=== PATIENT | female | born 1990 | race Two or more races ===

== ENCOUNTER 2024-05-17 12:50 | Emergency (ER) | payer MEDICAID, SELFPAY ==
[2024-05-17 12:52] VITALS: BMI 31.2
[2024-05-17 12:57] VITALS: BP 108/68; PULSE 67; RESP 17; TEMP 36.9; O2SAT 98
--- NOTE | 2024-05-17 13:12 | XR_ITS ---
Examination: Complete OB ultrasound greater than 14 weeks Date and time of exam: May 17, 2024 at 1343 hours INDICATIONS: Onset pelvic pain today Findings: Viable intrauterine single fetus with single amniotic sac presentation breech Cardiac motion 141 BPM Placenta fundal grade 1 Umbilical cord insertion 3 vessel seen Amniotic fluid adequate spine maternal left Cervix 3.3 cm Ovary on the right obscured by bowel gas Left ovary 4.5 x 2.6 x 3.3 cm arterial flow Composite estimated gestational age based on BPD, head circumference, abdominal circumference, femur length is 16 weeks 0 days Estimated weight 139 g. Survey of intracranial anatomy, spinal anatomy, abdominal anatomy, four-chamber heart performed with no abnormalities identified. Impression: Viable intrauterine gestation breech presentation Estimated gestational age 16 weeks 0 days.
--- NOTE | 2024-05-17 13:12 | PD.EDRME ---
Rapid Medical Screening Exam RME Arrival date/time: 05/17/24 12:50 This is a 33-year-old female who presents to the emergency department with complaints of lower pelvic abdominal pain she is currently 17 weeks of gestation I have greeted and performed a focused initial assessment of this patient. Initial appropriate labs ordered at this time. A comprehensive ED assessment and evaluation of the patient and analysis of all test and completion of medical decision making process will be conducted by additional ED provider. Chief Complaint: Abdominal Pain Time Seen by Provider: 05/17/24 12:53 Vital signs: Vital Signs Temperature 98.5 F 05/17/24 12:57 Pulse Rate 67 05/17/24 12:57 Respiratory Rate 17 05/17/24 12:57 Blood Pressure 108/68 05/17/24 12:57 Pulse Oximetry (%) 98 05/17/24 12:57 Oxygen Delivery Method Room Air 05/17/24 12:57
[2024-05-17 13:49] LABS: Collection Type, Urine Clean Catch
[2024-05-17 13:49] LABS: Basophils % (Auto) 0 % (0-2.5); Eosinophils % (Auto) 0 % (0-10); Hematocrit 35.2 % (36.0-46.0); Hemoglobin 12.8 g/dL (12.0-16.0); Immature Granulocytes % (Auto) 0 % (0-0); Immature Granulocytes Auto 0.04 Thou/mm3 (0.00-0.00); Lymphocytes # (Auto) 1.8 Thou/mm3 (1.0-4.8); Lymphocytes % (Auto) 13 % (10-50); Mean Corpuscular HGB Conc 36.4 g/dl (31.0-37.0); Mean Corpuscular Hemoglobin 32.2 pg (25.0-35.0); Mean Corpuscular Volume 88 fL (80-100); Monocytes # (Auto) 0.6 Thou/mm3 (0.0-0.8); Monocytes % (Auto) 4 % (0-12); Neutrophils # (Auto) 11.8 Thou/mm3 (1.8-7.7); Neutrophils % (Auto) 83 % (37-80); Nucleated Red Blood Cell % 0 /100 WBC (0); Platelet Count 278 Thou/mm3 (140-440); RDW Standard Deviation 38.6 fL (36.4-46.3); Red Blood Count 3.98 Miln/mm3 (4.00-5.20); White Blood Count 14.2 Thou/mm3 (3.6-11.0)
[2024-05-17 13:55] LABS: Bacteria,Urine Rare; Bilirubin,Urine Negative (Negative); Blood,Urine 1+ (Negative); Calcium Oxalate Crystals,Urine 3+; Color,Urine Yellow (Lt Yel-Yel); Glucose, Urine Negative (Negative); Hyaline Casts,Urine < 1 /hpf (0-1); Ketones,Urine 2+ (Negative); Leukocyte Esterase,Urine Positive (Negative); Nitrite,Urine Negative (Negative); Protein,Urine 1+ (Neg - Trace); RBC,Urine 15 /hpf (0-3); Specific Gravity,Urine 1.039 (1.001-1.035); Squamous Epithelial Cell,Urine 6 /hpf (0-5); WBC,Urine 30 /hpf (0-5)
[2024-05-17 14:02] LABS: Clarity,Urine Hazy (Clear/Hazy)
[2024-05-17 14:44] LABS: Alanine Aminotransferase 15 U/L (10-49); Albumin, Serum 4.2 gm/dL (3.5-5.0); Albumin/Globulin Ratio 1.5 (1.2-2.2); Alkaline Phosphatase 55 U/L (46-116); Anion Gap 7 (7-16); Aspartate Amino Transferase 19 U/L (0-34); BUN/Creatinine Ratio 16 Ratio (12-20); Beta HCG,Quantitative 96972 mIU/mL (<5.0); Blood Urea Nitrogen 8 mg/dL (9-23); Calcium 9.6 mg/dL (8.3-10.6); Calcium (Corrected) 9.6 mg/dL (8.5-10.1); Carbon Dioxide 23.8 mMol/L (20.0-31.0); Chloride 104 mMol/L (98-107); Creatinine (Component) 0.5 mg/dL (0.6-1.3); Estimated Creatinine Clearance 154.3 mL/min (>60); Globulin 2.8 gm/dL (2.3-3.5); Glucose 85 mg/dL (74-106); Osmolality,Calculated 267 (275-295); Potassium 3.4 mMol/L (3.4-5.1); Sodium 135 mMol/L (136-145); eGFR > 60 See Note
--- NOTE | 2024-05-17 14:49 | PD.EDABDPN ---
ED Abdominal Pain RME/HPI General Chief Complaint: Abdominal Pain Stated complaint: 15 WEEKS PREG, ABDOMINAL PAIN Time seen by provider: 05/17/24 12:53 Arrival date/time: 05/17/24 12:50 This is a 15-week female who presents to the emergency department with lower pelvic suprapubic pain x 1 day. She reports she feels movement however is worried about her prompting her ED visit today. Does report mild dysuria no hematuria no vaginal discharge. No fever no flank pain. RME / HPI RME / HPI narrative: 05/17/24 12:50 This is a 33-year-old female who presents to the emergency department with complaints of lower pelvic abdominal pain she is currently 17 weeks of gestation I have greeted and performed a focused initial assessment of this patient. Initial appropriate labs ordered at this time. A comprehensive ED assessment and evaluation of the patient and analysis of all test and completion of medical decision making process will be conducted by additional ED provider. Related Data Previous Rx's ?Medication ?Instructions ?Recorded cephalexin 500 mg capsule 500 mg PO Q8H 7 days #21 caps 05/17/24 Allergies Allergy/AdvReac Type Severity Reaction Status Date / Time No Known Allergies Allergy Verified 05/17/24 15:14 Review of Systems Review of Systems Systems Reviewed: All systems reviewed, normal except as documented Narrative Review of Systems: Gen: No fever, no chills, no weight loss EYES: No discharge, no visual changes, no pain HEENT: No ear pain, no congestion, no sore throat PULM: No shortness of breath, no cough, no congestion CV: No chest pain, no dyspnea on exertion, no palpitations GI: No nausea, no vomiting, no diarrhea, suprapubic pain pain, no constipation : No frequency, no urgency, positive dysuria Musc/skel: No joint pain, no back pain Skin: No rash Psyc: No hallucinations, no depression Heme/Lymph: No easy bleeding or bruising tendencies Neuro: No weakness, no headache ED Exam Narrative Physical exam: General: Sittiing in Exam table in no acute distress, answering questions appropriately HENT: normocephalic, atraumatic, EOMI, PERRLA, moist mucous membranes Chest: chest wall is nontender Cardiac: regular rate and rhythm, normal S1 and S2, no murmurs, rubs, or gallops, capillary refill ?2 seconds Pulmonary: clear to auscultation bilaterally, no wheezing, crackles, or rhonchi Abdominal: active bowel sounds, soft, mild suprapubic tenderness Neuro: A&OX3, CN II-XII intact, sensation grossly intact bilaterally in UE and LE. Skin: no rashes, no ecchymosis Ext: no lower extremity edema Course Quality Measures none Orders Category Date Time Status US OB >= 14 weeks Fetus Stat Exams 05/17/24 13:12 Completed ABO/RH Type Stat Lab 05/17/24 13:40 Completed Beta HCG,Quantitative Stat Lab 05/17/24 13:40 Completed CBC Stat Lab 05/17/24 13:40 Completed Comprehensive Metabolic Panel Stat Lab 05/17/24 13:40 Completed Urinalysis Stat Lab 05/17/24 13:30 Completed Urine Culture Stat Lab 05/17/24 13:30 Received cefTRIAXone [Rocephin] 1,000 mg Med 05/17/24 14:49 Discontinued Lidocaine 1% 20 ml [Xylocaine 1% 20 ML] 2.1 ml IM X1 Vital Signs Vital signs: Vital Signs Temperature 98.5 F 05/17/24 12:57 Pulse Rate 67 05/17/24 12:57 Respiratory Rate 17 05/17/24 12:57 Blood Pressure 108/68 05/17/24 12:57 Pulse Oximetry (%) 98 05/17/24 12:57 Oxygen Delivery Method Room Air 05/17/24 12:57 Abdominal Pain MDM MDM Narrative MDM Narrative:: 33-year-old female 15 weeks of gestation urinalysis positive UTI. IM Rocephin No severe leukocytosis, no acute renal failure. Will treat outpatient with cephalexin. Advised to follow-up with [facility] for follow-up care. Strict ER precautions given to return if there is any worsening symptoms change in condition. Patient data External records reviewed:: [facility] previous records Clinical information provided by:: patient Social determinants that could affect healthcare access:: none Patient has the following chronic illnesses:: None How is presenting disease/condition affected by chronic disease/condition?: no chronic disease Evaluation data The following diagnostics were reviewed and interpreted by me:: lab results and radiology exam(s) Lab and/or radiology exams considered but not ordered:: No Interpretation Summary: Examination: Complete OB ultrasound greater than 14 weeks Date and time of exam: May 17, 2024 at 1343 hours INDICATIONS: Onset pelvic pain today Findings: Viable intrauterine single fetus with single amniotic sac presentation breech Cardiac motion 141 BPM Placenta fundal grade 1 Umbilical cord insertion 3 vessel seen Amniotic fluid adequate spine maternal left Cervix 3.3 cm Ovary on the right obscured by bowel gas Left ovary 4.5 x 2.6 x 3.3 cm arterial flow Composite estimated gestational age based on BPD, head circumference, abdominal circumference, femur length is 16 weeks 0 days Estimated weight 139 g. Survey of intracranial anatomy, spinal anatomy, abdominal anatomy, four-chamber heart performed with no abnormalities identified. Impression: Viable intrauterine gestation breech presentation Estimated gestational age 16 weeks 0 days. Medications / Prescriptions Medications or Prescriptions considered but not ordered:: No Medication administrations:: Medication Administration History Discontinued Medications Ceftriaxone Sodium 1,000 mg/ (Lidocaine HCl 2.1 ml) 0 mg IM X1 ONE Stop: 05/17/24 14:50 Last Admin: 05/17/24 15:59 Dose: 1,000 mg Documented By: All medications administered and effective Consultations Consultation(s) initiated? (list below): No Diagnosis Differential diagnosis abdominal pain: abdominal pain, constipation, gastroenteritis, pancreatitis and other (UTI, threatened , missed ) Most likely diagnosis given after review of the tests above:: Urinary tract infection in Admission Indicated Admission indicated?: not indicated Admission Request Was there a request for admission?: No Disposition Plan Disposition Plan: Discharge Discharge Attestation Discharge Attestation: The patient and all family members were given an opportunity to ask questions and understood the discharge instructions. Discharge instructions specifically effects, indications for sooner follow up or return to the emergency department, and the expected course of current diagnosis. Patient condition: Stable Discharge Plan Plan Patient Disposition: HOME (Self Care) Patient condition on transfer: Stable Prescriptions/Referrals Prescriptions/Med Rec: New cephalexin 500 mg capsule 500 mg PO Q8H 7 Days Qty: 21 0RF Referrals: Rober Donovan MD [Primary Care Provider] - In 1 week Problem List Clinical Impression: UTI (urinary tract infection) during Patient/Caregiver Discharge Instructions Discharge Activity: activity as tolerated Education Materials: Urinary Tract Infections in Women Additional Instructions: Es muy importante que comience a trang antibi?ticos seg?n las indicaciones. Aumentar la hidrataci?n de l?quidos. Seguimiento con obstetra/ginec?logo. Es posible que necesite volver a controlar el an?lisis de orina y hacer un seguimiento del cultivo. Regrese al departamento de emergencias si los s?ntomas empeoran o si cambia wallis condici?n. is very important that you start your antibiotic as directed. Increase fluid hydration. Follow-up with [facility]. You might need recheck on urinalysis and follow-up on culture. Return to the emergency department with any worsening symptoms or change in condition. Print Language: Romanian Stand Alone Forms: [facility] Award Info., Patient Portal Info Letter JAMES/LEWIS Supervising Physician JAMES/LEWIS Supervising Physician: Dr Underwood
[2024-05-17 14:57] LABS: Bilirubin,Total 0.4 mg/dL (0.3-1.2)
[2024-05-17] MEDS: cefTRIAXone 1,000 MG, LIDOCAINE 1% 20 ML 2.1 ML IM (15:59)
== END 2024-05-17 16:25 | disposition home or self-care (01) ==
PROVIDERS: Nurse Practitioner Primary Care; Emergency Provider Emergency Medicine; PCP Family Medicine
DX: O23.42 Unspecified infection of urinary tract in pregnancy, second trimester (principal); N39.0 Urinary tract infection, site not specified; O32.1XX0 Maternal care for breech presentation, not applicable or unspecified; Z3A.16 16 weeks gestation of pregnancy
CPT/HCPCS: 36415; 76805; 80053; 81001; 84702; 85025; 86900; 86901; 87086; 96372; 99284; J0696; J3490

== ENCOUNTER 2024-08-07 19:17 | Observation (INO) | payer MEDICAID, SELFPAY ==
[2024-08-07] VITALS (12 sets, daily range): BP systolic 106–141; BP diastolic 64–90; PULSE 71–90; RESP 17–97; TEMP 36.8; O2SAT 95–98; BMI 30.2; BMI 43.2; BMI 31.9
--- NOTE | 2024-08-07 18:10 | PD.EDABDPN ---
ED Abdominal Pain RME/HPI General Chief Complaint: Abdominal Pain Stated complaint: ABD PAIN Time seen by provider: 08/07/24 18:01 Arrival date/time: 08/07/24 17:43 RME / HPI RME / HPI narrative: This section includes all my notes and documentations, including HPI, PE, and ED course. Rudi Roy MD HPI: 33yo female who is 28 weeks gestations BIBA from home presents to the ED for a chief complaint of lower abdominal pain. 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 She denies any N/V/D, constipation, vaginal bleeding, abnormal discharge or any other associated symptoms. She reports having a history of . No other complaints reported. ROS: All negative except as documented in HPI. Physical Exam: General: Alert and oriented. No acute distress when remaining still. Eyes: Conjunctivae and lids clear. ENT: No nasal congestion. Neck: Supple. Heart: RRR. Lungs: No respiratory distress. Good air movement. No rhonchi, wheezing, rales. Abdomen: Soft, gravid, and nontender. Equivocal pain to the lower abdomen. Legs: No clubbing, cyanosis, edema. Skin: Warm and dry. Neuro: Alert and oriented X 3. Based on my best medical judgment, made decision to medically cleared the patient for further evaluation in our OB department and no further evaluation or treatment indicated at this time. Patient understands and agrees to the discharge instructions customized and printed, see below. Additional Instructions: Discharge Instructions from Dr. Roy printed for you: 1. After evaluation, you are medically cleared for more evaluation in our OB department. To make sure your baby is okay. 2. Seek immediate medical care with any concerns. Rudi Roy MD Related Data Allergies Allergy/AdvReac Type Severity Reaction Status Date / Time No Known Allergies Allergy Verified 05/17/24 15:14 Review of Systems Review of Systems Systems Reviewed: All systems reviewed, normal except as documented ED Exam Narrative Physical exam: As noted in HPI. Course Quality Measures none Vital Signs Vital signs: Vital Signs Temperature 98.2 F 08/07/24 17:46 Pulse Rate 81 08/07/24 17:46 Respiratory Rate 20 08/07/24 17:46 Blood Pressure 141/90 H 08/07/24 17:46 Pulse Oximetry (%) 95 08/07/24 17:46 Oxygen Delivery Method Room Air 08/07/24 17:46 Abdominal Pain MDM MDM Narrative MDM Narrative:: Scribe Attestation: 08/07/24 Kay Gregory am scribing for and in the presence of Dr. Roy. Patient data External records reviewed:: [facility] previous records (Per chart review, patient has no previous ED visits or admissions to this facility.) Clinical information provided by:: patient Social determinants that could affect healthcare access:: none Patient has the following chronic illnesses:: none How is presenting disease/condition affected by chronic disease/condition?: no chronic disease Evaluation data The following diagnostics were reviewed and interpreted by me:: other (specify) (none) Lab and/or radiology exams considered but not ordered:: none Interpretation Summary: none Medications / Prescriptions Medications or Prescriptions considered but not ordered:: none Medication administrations:: none Consultations Consultation(s) initiated? (list below): No Diagnosis Differential diagnosis abdominal pain: abdominal pain Most likely diagnosis given after review of the tests above:: Abdominal pain Admission Indicated Admission indicated?: not indicated Explain why admission is indicated or not indicated:: No criteria for admission Admission Request Was there a request for admission?: No Disposition Plan Disposition Plan: Discharge Discharge Attestation Discharge Attestation: The patient and all family members were given an opportunity to ask questions and understood the discharge instructions. Discharge instructions specifically effects, indications for sooner follow up or return to the emergency department, and the expected course of current diagnosis. Patient condition: Stable Discharge Plan Plan Patient Disposition: HOME (Self Care) Problem List Clinical Impression: Abdominal pain Patient/Caregiver Discharge Instructions Discharge Activity: activity as tolerated Education Materials: ED Pain, Acute, Uncertain Cause Additional Instructions: Discharge Instructions from Dr. Roy printed for you: 1. After evaluation, you are medically cleared for more evaluation in our OB department. To make sure your baby is okay. 2. Seek immediate medical care with any concerns. Print Language: Maltese Stand Alone Forms: Shelby Award Info., Patient Portal Info Letter
[2024-08-07] MEDS: ACETAMINOPHEN 325 MG TABLET 650 MG PO (18:56)
== END 2024-08-07 19:48 | disposition home or self-care (01) ==
LOC: S4SX 08-08 07:34
PROVIDERS: Admitting Provider Obstetrics & Gynecology; Visit Provider Emergency Medicine
DX: Z34.82 Encounter for supervision of other normal pregnancy, second trimester (principal); Z3A.27 27 weeks gestation of pregnancy
CPT/HCPCS: 59025; 59899; G0378; A9270

== ENCOUNTER 2024-10-27 18:19 | Inpatient (IN) | payer MEDICAID, SELFPAY ==
[2024-10-27] VITALS (32 sets, daily range): BP systolic 105–119; BP diastolic 57–77; PULSE 65–90; RESP 18–97; TEMP 36.8–36.9; O2SAT 96–99; BMI 36.2
--- NOTE | 2024-10-27 19:19 | XR_ITS ---
Examination: Complete OB ultrasound greater than 14 weeks Date and time of exam: October 27, 2024, 1949 hours INDICATIONS: Unknown size and dates Findings: Viable intrauterine single fetus with single amniotic sac presentation cephalic Cardiac motion 113 BPM Placenta anterior grade 3 Umbilical cord insertion seen Amniotic fluid index 6.3 cm Cervix 3.7 cm. Composite estimated gestational age based on BPD, head circumference, abdominal circumference, femur length is 37 weeks 1 day, estimated weight 3181 g. Survey of intracranial anatomy, spinal anatomy, abdominal anatomy, four-chamber heart performed with no abnormalities identified. Impression: Viable intrauterine gestation in cephalic presentation.
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
[2024-10-27 20:06] LABS: Basophils % (Auto) 0 % (0-2.5); Eosinophils % (Auto) 0 % (0-10); Hematocrit 30.1 % (36.0-46.0); Hemoglobin 10.5 g/dL (12.0-16.0); Immature Granulocytes % (Auto) 0 % (0-0); Immature Granulocytes Auto 0.03 Thou/mm3 (0.00-0.00); Lymphocytes # (Auto) 1.5 Thou/mm3 (1.0-4.8); Lymphocytes % (Auto) 15 % (10-50); Mean Corpuscular HGB Conc 34.9 g/dl (31.0-37.0); Mean Corpuscular Hemoglobin 28.5 pg (25.0-35.0); Mean Corpuscular Volume 82 fL (80-100); Monocytes # (Auto) 0.5 Thou/mm3 (0.0-0.8); Monocytes % (Auto) 5 % (0-12); Neutrophils # (Auto) 7.8 Thou/mm3 (1.8-7.7); Neutrophils % (Auto) 79 % (37-80); Nucleated Red Blood Cell % 0 /100 WBC (0); Platelet Count 237 Thou/mm3 (140-440); RDW Standard Deviation 43.2 fL (36.4-46.3); Red Blood Count 3.69 Miln/mm3 (4.00-5.20); White Blood Count 9.8 Thou/mm3 (3.6-11.0)
[2024-10-27 20:25] LABS: Collection Type, Urine Clean Catch
[2024-10-27] MEDS: RINGERS LACTATED 1000 ML 1,000 ML 100 ML IV (20:30)
[2024-10-27] MEDS: ceFAZolin/D5W 2 GM IV 2 GM/100 ML BAG IV (20:31)
[2024-10-27 20:33] LABS: Bilirubin,Urine Negative (Negative); Blood,Urine Negative (Negative); Clarity,Urine Clear (Clear/Hazy); Color,Urine Yellow (Lt Yel-Yel); Glucose, Urine Negative (Negative); Ketones,Urine Negative (Negative); Leukocyte Esterase,Urine Negative (Negative); Nitrite,Urine Negative (Negative); PH,Urine 6.5 (5.0-7.0); Protein,Urine Trace (Neg - Trace); RBC,Urine 2 /hpf (0-3); Specific Gravity,Urine 1.025 (1.001-1.035); Squamous Epithelial Cell,Urine 1 /hpf (0-5); WBC,Urine 1 /hpf (0-5)
[2024-10-27 21:20] LABS: Amphetamine/Metham Scrn,Ur OB Negative (Negative); Benzoylecgonine Screen, Ur OB Negative (Negative); Opiate Screen,Urine OB Negative (Negative); THC Screen,Urine OB Negative (Negative)
[2024-10-27 21:44] LABS: Fibrinogen 372 mg/dL (175-375); INR 0.9 (0.9-1.3); Partial Thromboplastin Time 24.8 Seconds (22.0-36.0); Prothrombin Time 10.3 Seconds (9.0-12.2); Syphilis Nonreactive (Nonreactive)
[2024-10-27 21:50] LABS: Hepatitis B Surface Antigen Non Reactive (Non React); Rubella, IgG Antibody Reactive (Immune)
[2024-10-27 21:57] LABS: Alanine Aminotransferase 8 U/L (10-49); Albumin, Serum 3.5 gm/dL (3.5-5.0); Albumin/Globulin Ratio 1.4 (1.2-2.2); Alkaline Phosphatase 153 U/L (46-116); Anion Gap 12 (7-16); Aspartate Amino Transferase 23 U/L (0-34); BUN/Creatinine Ratio 20 Ratio (12-20); Bilirubin,Total 0.4 mg/dL (0.3-1.2); Blood Urea Nitrogen 10 mg/dL (9-23); Calcium 8.2 mg/dL (8.3-10.6); Calcium (Corrected) 8.6 mg/dL (8.5-10.1); Carbon Dioxide 23.5 mMol/L (20.0-31.0); Chloride 105 mMol/L (98-107); Creatinine (Component) 0.5 mg/dL (0.6-1.3); Globulin 2.5 gm/dL (2.3-3.5); Glucose 70 mg/dL (74-106); Osmolality,Calculated 276 (275-295); Potassium 3.8 mMol/L (3.4-5.1); Sodium 140 mMol/L (136-145); Uric Acid 4.4 mg/dL (3.1-7.8); eGFR > 60 See Note
[2024-10-28] VITALS (105 sets, daily range): BP systolic 91–158; BP diastolic 55–90; PULSE 58–245; RESP 12–18; TEMP 36.5–37.1; O2SAT 85–100
[2024-10-28] MEDS: ceFAZolin/D5W 2 GM IV 2 GM/100 ML BAG IV ×2 (04:22→12:05)
[2024-10-28] MEDS: RINGERS LACTATED 1000 ML 1,000 ML 100 ML IV (05:58)
--- NOTE | 2024-10-28 06:26 | PD.LDPN ---
Documentation for date of: 10/28/24 OB Labor Progress Note Pain Control Pain control: tolerating well Comments: Patient is considering epidural later. She had 1 dose of Cytotec 50 mcg orally. Pelvic Exam Dilation (cm): 3 Effacement (%): 70 station: -3 Amniotic membrane status: Intact Contractions Monitor mode: External Contraction frequency: 3 Contraction intensity: Mild Status status: Category l
[2024-10-28] MEDS: MISOPROSTOL 50 mCg TABLET PO ×2 (07:50)
[2024-10-28 09:14] LABS: Chlamydia trachomatis PCR Negative (Not Detect); Neisseria Gonorrhoeae DNA PCR Negative (Not Detect); Trichomonas Negative (Negative)
[2024-10-28] MEDS: fentaNYL CIT INJ 50 mCg/ML AMP 2ML 100 MCG IV (12:07)
--- NOTE | 2024-10-28 17:30 | PC.NURSE ---
amnio infusion started per MD order for early decels
[2024-10-28] MEDS: CITRIC ACID/SODIUM CITR 15 ML UDC (BICITRA) 30 ML PO (18:15)
[2024-10-28] MEDS: FAMOTIDINE INJ 10 MG/ML VIAL 2 ML 20 MG IV (18:15)
--- NOTE | 2024-10-28 18:17 | PD.LDPN ---
Documentation for date of: 10/28/24 OB Labor Progress Note Pain Control Comments: Epidural Pelvic Exam Dilation (cm): 5 Effacement (%): 80 station: -1 Amniotic membrane status: Ruptured Contractions Monitor mode: Internal Contraction frequency: 2-3 Contraction intensity: Strong Status status: Category ll Comments: Recurrent severe variable and prolonged deceleratons Assessment and Plan Comments: Category 2 tracing trending toward Category 3 No improvement in tracing with intrauterine resuscitative measures. C/S recommended Informed consent obtained, pateint was made aware of the risks, complications, alternatives and benefits of the proposed procedure and she agrees.
[2024-10-28] MEDS: CLINDAMYCIN 900MG IVPB 50 ML 100 MG IV (18:37)
[2024-10-28] MEDS: MISOPROSTOL 200 mCg TABLET 800 MCG PR (19:13)
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
[2024-10-28] MEDS: DIPHENOXYLATE/ATROP SULF 1 TAB PO (19:41)
[2024-10-28] MEDS: OXYTOCIN in NS 20 units 20 UNIT/1,000 ML BAG 125 UNIT IV (19:42)
--- NOTE | 2024-10-28 20:01 | PD.LDDELS ---
Data ([facility]) Data Hx Section: No : 6 Term: 4 : 0 Livin Abortions: Spontaneous & Theraputic: 1 Delivery Data ([facility]) Labor Data ROM date: 10/28/24 ROM time: 16:54 Amniotic membrane rupture type: Artificial Amniotic fluid description: Clear and Blood Tinged Delivery Data EDC: 11/01/24 EDC calculated by:: ultrasound Gestational age (weeks): 39 Gestational age (days): 3 Delivered by: Yovani Sawant [employer] Management Adviser at delivery: Yes Delivery Method Delivery: Delivery Type: Primary Presentation: Vertex Position: OP Anesthesia Type Primary Anesthesia: Spinal Placenta Placenta Delivery: Manual Placenta Cultures Obtained: No Placenta Sent for Examination: No Cord Sample: Cord Blood Obtained EBL Estimated blood loss (ml): 800 Umbilical Cord Nuchal Cord: x1 Tightly Complications Complications: Uterine atony Data ([facility]) Data 's gender: Male
[2024-10-28] MEDS: HYDROcodone/APAP 5/325 TABLET 1 TAB PO (23:51)
[2024-10-29] VITALS (8 sets, daily range): BP systolic 95–115; BP diastolic 56–73; PULSE 67–84; RESP 16–18; TEMP 36.8–37.6; O2SAT 94–98
[2024-10-29 00:51] LABS: Basophils % (Auto) 0 % (0-2.5); Eosinophils % (Auto) 0 % (0-10); Hematocrit 32.1 % (36.0-46.0); Hemoglobin 10.8 g/dL (12.0-16.0); Immature Granulocytes % (Auto) 0 % (0-0); Immature Granulocytes Auto 0.05 Thou/mm3 (0.00-0.00); Lymphocytes % (Auto) 6 % (10-50); Mean Corpuscular HGB Conc 33.6 g/dl (31.0-37.0); Mean Corpuscular Hemoglobin 28.3 pg (25.0-35.0); Mean Corpuscular Volume 84 fL (80-100); Monocytes # (Auto) 0.7 Thou/mm3 (0.0-0.8); Monocytes % (Auto) 5 % (0-12); Neutrophils % (Auto) 89 % (37-80); Nucleated Red Blood Cell % 0 /100 WBC (0); Platelet Count 221 Thou/mm3 (140-440); RDW Standard Deviation 44.3 fL (36.4-46.3); Red Blood Count 3.81 Miln/mm3 (4.00-5.20); White Blood Count 15.7 Thou/mm3 (3.6-11.0)
[2024-10-29] MEDS: OXYTOCIN in NS 20 units 20 UNIT/1,000 ML BAG 125 UNIT IV (03:33)
[2024-10-29] MEDS: HYDROcodone/APAP 5/325 TABLET 1 TAB PO (05:04)
[2024-10-29] MEDS: DOCUSATE SOD 100 MG CAPSULE PO (08:38)
[2024-10-29] MEDS: SIMETHICONE 80 MG CHEW PO (08:38)
[2024-10-29 08:52] LABS: HIV (1&2) Antibody Rapid Non-Reactive
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
[2024-10-29] MEDS: HYDROcodone/APAP 5/325 TABLET 2 TAB PO ×2 (12:41→19:49)
[2024-10-30] MEDS: HYDROcodone/APAP 5/325 TABLET 2 TAB PO ×2 (03:14→09:00)
[2024-10-30 03:52] VITALS: BP 116/71; PULSE 81; RESP 18; TEMP 36.9; O2SAT 97
--- NOTE | 2024-10-30 06:20 | PD.LDPPPRG ---
Subjective Subjective Interval history: Delivery type: , with intrapartum uterine atonia/hemorrhage Patient doing well this morning. No acute complaints. Ambulating, tolerating p.o. and voiding without difficulty. HTN/Pre-Eclampsia screen: No chest pain, shortness of breath, headache, visual changes, epigastric or right upper quadrant pain. Breast-feeding, lochia diminishing. Bowel: Flatus+/ BM+ Exam Vital Signs Temp Pulse Resp BP Pulse Ox O2 Del Method O2 Flow Rate 98.4 F 81 18 116/71 97 Room Air 4 10/30/24 03:52 10/30/24 03:52 10/30/24 03:52 10/30/24 03:52 10/30/24 03:52 10/30/24 03:52 10/28/24 20:00 Constitutional Constitutional: no acute distress Routine HEENT Exam Head: Present normocephalic and atraumatic Eye: Present EOMI and PERRL ENT: Present mucous membranes moist Routine Neck Exam Neck: Present supple and trachea midline Routine Respiratory Exam Respiratory: Present chest non-tender, lungs clear, normal breath sounds and no resp distress Routine Cardiovascular Exam Cardiovascular: Present RRR Routine Abdominal Exam Abdominal: Present soft and normoactive bowel sounds Routine Extremities Exam Extremities: Present full ROM Routine Skin Exam Skin: Present intact, dry and warm Routine Neurological Exam Neurological: Present alert, oriented X3 and CN II-XII intact Routine Psychiatric Exam Psychiatric: Present normal affect and normal thought process Objective Labs 10/29/24 00:36 10/27/24 19:45 Labs: Laboratory Results - last 24 hr 10/29/24 00:35 HIV 1&2 Antibody Rapid Non-Reactive Assessment & Plan Problem List (1) Supervision of high risk in third trimester: Status: Acute (2) Active labor at term: Status: Acute (3) Grand multipara in labor in third trimester: Status: Acute (4) delivery delivered: Problem details: 1. Continue routine /post-op care 2. Labs reviewed, cbc appropriate 3. Remove dressing/[place] 4. Encourage to ambulate, shower 5. Encourage PO intake, breast feeding Status: Acute Time Spent With Patient Time: Total time spent is greater than 50% in coordination of care (as documented) at patient's floor/unit and/or counseling patient:
[2024-10-30 07:15] VITALS: BP 129/80; PULSE 77; RESP 16; TEMP 36.7; O2SAT 96
--- NOTE | 2024-10-30 07:29 | ESOP_ITS ---
RE: ATIF HERNANDEZ : 1990 DATE OF OPERATION: 10/28/2024 PREOPERATIVE DIAGNOSES: 1. Intrauterine at 39 weeks. 2. Active labor. 3. Category 2 tracing trending toward category 3. POSTOPERATIVE DIAGNOSES: 1. Intrauterine at 39 weeks. 2. Active labor. 3. Category 2 tracing trending toward category 3. PROCEDURE PERFORMED: Primary low transverse section via Pfannenstiel skin incision. SURGEON: Yovani Sawant DO PATIENT SUPPORT PARTNER: KENNY Collier ANESTHESIA: Spinal. ANESTHESIOLOGIST: Asa Gordon CRNA ESTIMATED BLOOD LOSS: 800 mL. COMPLICATIONS: Uterine atony. FINDINGS: 1. A live male , cephalic presentation. 2. scores not dictated. 3. Clear amniotic fluid. 4. Placenta removed completely intact. 5. Ovaries and tubes grossly within normal limits. 6. Uterus initially atonic but responded to uterotonics. DESCRIPTION OF PROCEDURE: After proper informed consent was obtained and the patient was made aware of the risks, complications, alternatives, and benefits of the proposed procedure, she was taken to the operating room where she underwent induction of spinal anesthesia. She was placed in the dorsal supine position and she was prepped and draped in usual sterile fashion. A time-out was performed. A Pfannenstiel skin incision was made with a scalpel carried through to the underlying layer of fascia with the Bovie. The fascia was nicked in midline. Incision was extended bilaterally with the Bovie. The inferior aspect of the fascial incision was grasped with Thomas clamps and elevated. The underlying rectus muscles were dissected off with the Bovie. The rectus muscles were in the midline. Peritoneum was identified between 2 Castelan clamps and entered sharply with Metzenbaum scissors. The incision was extended superiorly and inferiorly with good visualization of the bladder. The bladder blade was then inserted. Vesicouterine peritoneum was incised transversely and the bladder flap was created digitally. The bladder blade was reinserted. The lower uterine segment was incised in transverse fashion with the scalpel. The incision was extended bilaterally digitally. The infant's head delivered. The mouth and nose were suctioned with the bulb suction and the nuchal cord was reduced. Shoulder and body delivered atraumatically. The cord was clamped and cut. The infant was sent off to the waiting pediatric staff. Cord blood was sent. The placenta was then removed manually. The uterus was exteriorized and cleared of all clots and debris. The uterine incision was repaired with 1-0 chromic suture in a running locking fashion. The second layer of the same suture was used to imbricate the first layer. 0 chromic catgut suture was used on the lower uterine segment for hemostasis. The vesicouterine peritoneum was closed with 2-0 chromic catgut suture in running fashion. The uterus was initially atonic but responded to a series of uterotonics in the form of Pitocin, TXA, Methergine, Hemabate, and then Cytotec. These measures resulted in the uterus firming up nicely with 800 mL of blood loss and remaining hemodynamically stable. The uterus was returned to the abdomen. The gutter was cleared of all clots and debris. The fundus was firm and the peritoneum was closed with 0 chromic catgut suture in running fashion. The muscle was closed with 0 chromic catgut suture in running fashion. The fascia was closed with 0 Vicryl beginning at each angle and ending in center in running fashion. Subcutaneous tissue was irrigated with normal saline solution and found to be hemostatic and closed with 2-0 chromic catgut suture in a running fashion. The skin was closed with 4-0 Monocryl and Dermabond. Prineo dressing was applied. A sterile pressure dressing was applied. She tolerated the procedure well. Counts were correct. I discussed with the patient nature of her condition and intraoperative findings, expectation for recovery. All questions were answered. DT: 19:59:43 TT: 21:42:00 Ref: [id number] - TID: [id number]
[2024-10-30] MEDS: DOCUSATE SOD 100 MG CAPSULE PO (09:00)
--- NOTE | 2024-10-30 13:18 | PD.LDPPPRG ---
Subjective Subjective Interval history: Patient is postop day #2 status post primary by Dr Sawant. Patient is doing well. She would like to go home. No heavy bleeding pain is controlled with [place]. Exam Vital Signs Temp Pulse Resp BP Pulse Ox O2 Del Method O2 Flow Rate 98.1 F 77 16 129/80 96 Room Air 4 10/30/24 07:15 10/30/24 07:15 10/30/24 07:15 10/30/24 07:15 10/30/24 07:15 10/30/24 07:15 10/28/24 20:00 Narrative Exam Patient is alert and oriented x 3 in no apparent distress resting comfortably in bed. Fundus is firm nontender extremities show no significant edema or erythema incision is clean dry and intact Objective Labs 10/29/24 00:36 10/27/24 19:45 Assessment & Plan Problem List (1) Grand multipara in labor in third trimester: Status: Acute (2) delivery delivered: Problem details: . Continue routine /post-op care discharge home today instructions given Status: Acute (3) Uterine atony, , current hospitalization: Status: Acute Time Spent With Patient Time: Total time spent is greater than 50% in coordination of care (as documented) at patient's floor/unit and/or counseling patient: Time with patient: less than 15 minutes
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
== END 2024-10-30 14:30 | disposition home or self-care (01) | DRG 540 ==
LOC: S4SX 10-28 06:54 → S4NX 10-28 18:46
PROVIDERS: Specialist; Admitting Provider Obstetrics & Gynecology; Visit Provider Obstetrics & Gynecology
PROC: 10D00Z1 Extraction of Products of Conception, Low, Open Approach (ICD-10-PCS; CPT 59514; principal; 2024-10-28 18:15)
DX: O69.1XX0 Labor and delivery complicated by cord around neck, with compression, not applicable or unspecified (principal); Z37.0 Single live birth; Z3A.39 39 weeks gestation of pregnancy; O62.2 Other uterine inertia
CPT/HCPCS: 36415; 59025; 59409; 76805; 80053; 80307; 81001; 84550; 85025; 85384; 85610; 85730; 86703; 86762; 86780; 86850; 86900; 86901; 86923; 87340; 87491; 87591; 87661; 94762; A4649; J0689; J2210; J2274; J2371; J2405; J2590; J2795; J3010; J3490; J7120; S0077; S0191; A9270; J0736; J2270

== ENCOUNTER 2024-12-28 13:41 | Emergency (ER) | payer MEDICAID, SELFPAY ==
[2024-12-28 13:50] VITALS: BP 114/78; PULSE 75; RESP 18; TEMP 36.7; O2SAT 97
--- NOTE | 2024-12-28 14:28 | EDNOTE_ITS ---
ED Skin Abcess FB-RME/HPI General Chief complaint: Skin/Abscess/Foreign Body Stated complaint: Right 5th digit swollen X 2 months Time Seen by Provider: 12/28/24 13:52 Arrival date/time: 12/28/24 13:41 This is a 34 year old female with complaints of right fifth digit swelling and pain. Patient states she has had it for 2 months. Patient states that she initially noticed it when she was about to deliver the baby. Patient states she did not want to come to the hospital because she just had a . Patient states that she has been putting stuff on it and been trying to squeeze it. Patient states it is a lot more swollen now. Patient denies any fever or chills. Related Data Home Medications ?Medication ?Instructions ?Recorded ?Confirmed dzvedhqy-[id number] 1 mg 1 tab PO QDAY 5 10/27/24 tablet Previous Rx's ?Medication ?Instructions ?Recorded hydrocodone 5 mg-acetaminophen 325 1 tab PO Q6H PRN pa in #20 tabs 10/28/24 mg tablet hydrocodone 5 mg-acetaminophen 325 2 tab PO Q6HR PRN P atient rated 10/30/24 mg tablet pain 9 to 10 #30 tabs cephalexin 500 mg capsule 500 mg PO TID 7 days #21 cap s 12/28/24 Allergies Allergy/AdvReac Type Severity Reaction Status Date / Time amoxicillin Allergy Rash Verified 12/28/24 13:45 ibuprofen Allergy Rash Verified 12/28/24 13:45 Course Orders Category Date Time Status cephALEXin [Keflex] Med 12/28/24 14:22 Discontinued 500 mg PO X1 ONE Vital Signs Vital signs: Vital Signs Temperature 98.1 F 12/28/24 13:50 Pulse Rate 75 12/28/24 13:50 Respiratory Rate 18 12/28/24 13:50 Blood Pressure 114/78 12/28/24 13:50 Pulse Oximetry (%) 97 12/28/24 13:50 Oxygen Delivery Method Room Air 12/28/24 13:50 Skin / Abscess / Foreign Body MDM Narrative MDM Narrative:: Will treat patient with Keflex. Patient told to use warm compresses at home. Patient told to follow-up with primary provider 1 to 2 days. Come back to the emergency room if symptoms change or worsen. Medications / Prescriptions Medication administrations:: Medication Administration History Discontinued Medications Cephalexin HCl (Cephalexin 250 Mg Capsule) 500 mg PO X1 ONE Stop: 12/28/24 14:23 Discharge Plan Plan Patient Disposition: HOME (Self Care) Patient condition on transfer: Stable Prescriptions/Referrals Prescriptions/Med Rec: New cephalexin 500 mg capsule 500 mg PO TID 7 Days Qty: 21 0RF No Action jkwnlfcc-[id number] 1 mg tablet 1 tab PO QDAY hydrocodone-acetaminophen 5-325 mg tablet 1 tab PO Q6H MDD 4 PRN (Reason: pain) Qty: 20 0RF hydrocodone-acetaminophen 5-325 mg Tablet 2 tab PO Q6HR MDD 6 PRN (Reason: Patient rated pain 9 to 10) Qty: 30 0RF Referrals: No Primary/Family,Physician [Primary Care Provider] - In 1 week Problem List Clinical Impression: Cellulitis Patient/Caregiver Discharge Instructions Discharge Activity: activity as tolerated Education Materials: ED Cellulitis Additional Instructions: Arpan un dmitriy con [facility] medico de cabecera en las proximas 24-48 horas. Regrese a la lakeisha de emergencias si hay evidencia de que los signos o sintomas empeoran. Print Language: Bruneian Stand Alone Forms: Shelby Award Info., Patient Portal Info Letter PA/DRAW FRAME RUNNER Supervising Physician JAMES/DRAW FRAME RUNNER Supervising Physician: adis
== END 2024-12-28 14:44 | disposition home or self-care (01) ==
PROVIDERS: Emergency Provider Emergency Medicine
DX: L03.011 Cellulitis of right finger (principal)
CPT/HCPCS: 99282; A9270